=== PATIENT | female | born 1975 | race Two or more races ===

== ENCOUNTER 2019-11-08 12:34 | Emergency (ER) | payer SELFPAY ==
[~2019-11-08] VITALS: Ht 160 cm; Wt 80.3 kg
[2019-11-08 12:43] VITALS: Ht 160 cm; Wt 80.3 kg
[2019-11-08 13:34] VITALS: BP 129/78
== END 2019-11-08 13:34 | disposition home or self-care (01) ==
LOC: ED 12:34
DX: J06.9 Acute upper respiratory infection, unspecified (principal)